=== PATIENT | female | born 2005 | race Caucasian/White ===

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

== ENCOUNTER 2024-05-13 09:49 | Emergency (ER) | payer MEDICAID ==
[~2024-05-13] VITALS: Ht 162.6 cm; Wt 68.8 kg
[2024-05-13 09:59] VITALS: TEMP 98
[2024-05-13] MEDS: ketorolac trometh. 30mg/ml inj. IM ONE (10:50)
[2024-05-13 11:13] VITALS: BP 112/81; PULSE 87; RESP 16; O2SAT 99
== END 2024-05-13 11:17 | disposition home or self-care (01) ==
LOC: ER 09:50
DX: M25.512 Pain in left shoulder (principal); W18.39XA Other fall on same level, initial encounter; Y93.89 Activity, other specified; Y92.89 Other specified places as the place of occurrence of the external cause; Y99.8 Other external cause status
CPT/HCPCS: 73030; 96372; 99283; J1885